=== PATIENT | male | born 1990 | race Caucasian/White ===

== ENCOUNTER 2016-05-29 07:00 | Day surgery (SDC) | payer OTHER ==
[~2016-05-29] VITALS: Ht 185.4 cm; Wt 75.3 kg
[~2016-05-29 07:00] MED LIST: LAM100 PO; QUETIAPINE FUM200 MG; SEROQUEL PO; VALIUM PO; ZOL100 PO; ZYP10 PO
[2016-05-29 07:17] VITALS: BP 127/75
[2016-05-29 09:56] VITALS: BP 104/67
== END 2016-05-29 10:20 | disposition home or self-care (01) ==
LOC: GI 07:00 → OR 09:30 → GI 10:20
PROVIDERS: Internal Medicine
PROC: 0DB38ZX Excision of Lower Esophagus, Via Natural or Artificial Opening Endoscopic, Diagnostic (ICD-10-PCS; 2016-05-29)
PROC: 0DB48ZX Excision of Esophagogastric Junction, Via Natural or Artificial Opening Endoscopic, Diagnostic (ICD-10-PCS; principal; 2016-05-29 09:30)
PROC: 0DB68ZX Excision of Stomach, Via Natural or Artificial Opening Endoscopic, Diagnostic (ICD-10-PCS; 2016-05-29 09:30)
DX: K22.6 Gastro-esophageal laceration-hemorrhage syndrome (principal); K21.0 Gastro-esophageal reflux disease with esophagitis; B18.2 Chronic viral hepatitis C; F41.9 Anxiety disorder, unspecified; Z68.23 Body mass index [BMI] 23.0-23.9, adult
CPT/HCPCS: 43235; J1200; J1610; J2250; J2310; J3010; J3490

== ENCOUNTER 2016-06-12 02:06 | Emergency (ER) | payer OTHER ==
[2016-06-12 05:57] VITALS: BP 113/72
== END 2016-06-12 05:57 | disposition home or self-care (01) ==
LOC: ED 02:06
DX: R04.2 Hemoptysis (principal); R07.9 Chest pain, unspecified; R50.9 Fever, unspecified; F31.9 Bipolar disorder, unspecified

== ENCOUNTER 2016-06-17 19:53 | Emergency (ER) | payer OTHER ==
[2016-06-18 01:24] LABS: BASOPHIL % 0.5 % (0-2); PLATELET COUNT 248 x10^3mcL (130-400)
[2016-06-18 01:33] LABS: CALCIUM 8.7 mg/dL (8.5-10.1); CARBON DIOXIDE 30.9 mmol/L (21-32); CHLORIDE SERUM 104 mmol/L (98-107); CREATININE SERUM 0.9 mg/dL (0.7-1.3); GFR1 > 60 mL/min; GLUCOSE SERUM 76 mg/dL (74-106); POTASSIUM SERUM 3.7 mmol/L (3.5-5.1); SODIUM SERUM 141 mmol/L (136-145)
[2016-06-18 01:38] LABS: ALBUMIN 3.7 g/dL (3.4-5.0); ALKALINE PHOSPHATASE 53 U/L (46-116); ALT/SGPT 51 U/L (16-63); AST/SGOT 23 U/L (15-37); TOTAL PROTEIN, SERUM 6.8 g/dL (6.4-8.2)
[2016-06-18 02:04] VITALS: BP 116/84
== END 2016-06-18 02:04 | disposition home or self-care (01) ==
LOC: ED 19:53
PROVIDERS: Emergency Medicine
DX: K92.0 Hematemesis (principal); F20.9 Schizophrenia, unspecified; F31.9 Bipolar disorder, unspecified; Z79.899 Other long term (current) drug therapy

== ENCOUNTER 2017-04-24 00:05 | Emergency (ER) | payer OTHER ==
[~2017-04-24] VITALS: Ht 185.4 cm; Wt 83.9 kg
[2017-04-24 00:13] VITALS: Ht 185.4 cm; Wt 83.9 kg
[2017-04-24 00:51] LABS: BASOPHIL % 0.7 % (0-2); PLATELET COUNT 210 x10^3mcL (130-400)
[2017-04-24 01:12] LABS: CALCIUM 8.9 mg/dL (8.5-10.1); CARBON DIOXIDE 29.4 mmol/L (21-32); CHLORIDE SERUM 105 mmol/L (98-107); GFR1 > 60 mL/min; GLUCOSE SERUM 129 mg/dL (74-106); POTASSIUM SERUM 3.3 mmol/L (3.5-5.1); SODIUM SERUM 141 mmol/L (136-145)
[2017-04-24 01:16] LABS: ALBUMIN 3.7 g/dL (3.4-5.0); ALKALINE PHOSPHATASE 49 U/L (46-116); ALT/SGPT 26 U/L (16-63); AST/SGOT 21 U/L (15-37); BILIRUBIN TOTAL 0.32 mg/dL (0.20-1.00); TOTAL PROTEIN, SERUM 6.7 g/dL (6.4-8.2)
[2017-04-24 03:03] VITALS: BP 113/71
== END 2017-04-24 03:03 | disposition home or self-care (01) ==
LOC: ED 00:05
PROVIDERS: Specialist
DX: T40.1X1A Poisoning by heroin, accidental (unintentional), initial encounter (principal); E87.6 Hypokalemia; F19.10 Other psychoactive substance abuse, uncomplicated; Y92.89 Other specified places as the place of occurrence of the external cause
CPT/HCPCS: 83880; G0480; J7030